=== PATIENT | female | born 1955 | race Caucasian/White ===

== ENCOUNTER 2019-02-22 06:52 | Day surgery (SDC) ==
[~2019-02-22 06:52] MED LIST: DIPRIVAN 1% ONE; FENTANYL ONE; QUELICIN (DOSE) ONE; ROBINUL ONE; VERSED ONE
[2019-02-22] MEDS ORDERED: PEPCID ONE (07:41)
[2019-02-22] MEDS ORDERED: KEFZOL 1 GM/D5W 1 GM/50 ML IVPB ONE (07:42)
[2019-02-22] MEDS ORDERED: LR 1,000 ML ONE (07:42)
[2019-02-22] MEDS ORDERED: REGLAN ONE (07:42)
[2019-02-22] MEDS ORDERED: METHYLENE BLUE 0.5% ONE (08:22)
[2019-02-22] MEDS ORDERED: XYLOCAINE 1%/EPI 1:100,000 ONE (08:22)
[2019-02-22] MEDS ORDERED: MARCAINE 0.25% PF ONE (08:22)
[2019-02-22] MEDS ORDERED: OFIRMEV 1000 MG/ISOTONIC SOLN 1,000 MG/100 ML BOTTLE ONE (09:47)
[2019-02-22] MEDS ORDERED: DECADRON ONE (09:47)
[2019-02-22] MEDS ORDERED: NEO-SYNEPHRINE ONE (09:52)
[2019-02-22] MEDS ORDERED: STERILE WATER INJ. ONE (09:52)
[2019-02-22] MEDS ORDERED: ZOFRAN ONE (10:31)
[2019-02-22] MEDS ORDERED: ROBINUL ONE (10:34)
[2019-02-22] MEDS ORDERED: NEOSTIGMINE ONE (10:36)
[2019-02-22] MEDS ORDERED: BLISTEX MEDICATED BERRY LIP BALM ONE (11:44)
[2019-02-22] MEDS ORDERED: NORCO-10 PO PRN (11:48)
[2019-02-22] MEDS: DILAUDID ONE ×4 (11:50→12:05)
[2019-02-22] MEDS ORDERED: PHENERGAN IV PRN (11:51)
[2019-02-22] MEDS ORDERED: NORCO-10 ONE (11:52)
[2019-02-22] MEDS ORDERED: SODIUM CHLORIDE 0.9% INJ PRN (12:00)
[2019-02-22] MEDS ORDERED: TYLENOL PO SCH (13:00)
[2019-02-22] MEDS: MOTRIN PO SCH ×2 (13:42→14:16)
[2019-02-22 15:06] VITALS: BP 126/70
--- NOTE | 2019-02-22 19:47 | OPERATIVE NOTE ---
PROCEDURE DATE: 02/22/2019 PREOPERATIVE DIAGNOSIS: Left breast cancer, upper mid left breast. POSTOPERATIVE DIAGNOSIS: Left breast cancer, upper mid left breast. PRINCIPAL PROCEDURE: 1. Left modified radical mastectomy. 2. Injection of periareolar blue dye for identification of sentinel lymph node. SURGEON: Tatiana Arroyo MD. EVALUATION ANALYST: Mati Mariee R.N. ANESTHESIA: General. ESTIMATED BLOOD LOSS: 100 mL. DRAINS: Two hundred 10 flat Amaury-Gill drains underneath our flaps and within the left axilla. INDICATIONS: Ms Aminah Mariee is a 63-year-old white female who was diagnosed with left breast cancer in [place] using ultrasound-guided core needle biopsy. This tumor is difficult to feel on exam. It is upper mid aspect of the left breast. We discussed surgical treatment options and she chose a left mastectomy with sentinel lymph node biopsy. FINDINGS: We performed a thorough left breast mastectomy, however we could not convincingly say we found a left axillary sentinel lymph node. Despite dual injections not only of the radioactive colloid but blue dye define these lymph nodes so we dissected the entire left axilla. There was no obviously enlarged lymph nodes during this dissection. We felt we had a thorough dissection of the left axilla. DESCRIPTION OF PROCEDURE: The patient was injected with radioactive colloid while she was in holding. She was then brought to the operating room, received general anesthesia, was intubated. Left breast was prepped and draped within a sterile field. She received Ancef prophylactically. I injected 5 mL of periareolar blue dye to also find sentinel nodes. I marked my elliptical incision where I encompassed the nipple-areolar complex and the skin overlying the tumor site. This was an oblique incision and I made it with a 10 blade scalpel. I then used the cautery to create my flaps. I created superior flap to the clavicle, medial flap to the sternum, inferior flap to the inframammary fold and then I removed the breast from medial to lateral. There was no evidence of any cancer involving the pectoralis major muscle. Once I got to the axilla I used the Navigator. There was some blue stain lymphatics but I could not find blue stained lymph node. There was hardly any counts in the left axilla using the Navigator and so I decided to dissect all the left axilla out. I removed the breast before dissecting the left axilla. I defined our margins of the axilla, the chest wall medially, the vein superiorly and the latissimus dorsi laterally. I used the LigaSure to help with the dissection. I identified the long thoracic and thoracodorsal nerves. I dissected all soft tissue from the vein between these nerves from superior to inferior. I also dissected all soft tissue from along the latissimus dorsi preserving the thoracodorsal nerve. We felt we had a thorough dissection of the axilla using the LigaSure. These contents were sent as a separate specimen. Any bleeding was controlled using the cautery. We used warm irrigation to irrigate the wounds. We placed two 10 flat Amaury-Gill drains, one was superficial to the left pectoralis major, one was in the left axilla. They were brought out through separate stab incisions left anterior axillary line. They were secured to the skin with 2- 0 nylon stitches. I closed my wound in 2 layers. First layer 3-0 popoff Vicryl stitches to close the subcutaneous tissue. Skin was closed with 4-0 Monocryl subcuticular stitch. Dressings were applied. The CANDY drains were hooked to bulb suction. cc: Tatiana Arroyo MD
[2019-02-22] MEDS ORDERED: PERIDEX MT SCH (21:00)
== END 2019-02-22 17:19 | disposition home or self-care (01) ==
LOC: OPS 06:52 → 4N 06:52 → PAT 06:52 → OPS 14:50
PROVIDERS: ATTEND Surgery